=== PATIENT | male | born 1930 | race Caucasian/White ===

== ENCOUNTER 2016-11-19 11:13 | Inpatient (IN) | payer OTHER ==
[~2016-11-19] VITALS: Ht 170.2 cm; Wt 50.9 kg
[2016-11-19 13:18] VITALS: BP 149/77
[2016-11-19] MEDS: MORPHINE SULFATE 20 MG/ML CONC SOLUTION. SL PRN ×9 (13:24→21:53)
[2016-11-19] MEDS: HALOPERIDOL 10 MG/5 ML ORAL.CONC. PEG PRN ×4 (13:24→21:04)
[2016-11-19 13:35] VITALS: BP 149/77
--- NOTE | 2016-11-19 13:42 | NUR ---
Patient to room 103 for inpatient hospice. Diagnosis end stage COPD. Patient on 5L NC, oxygen saturation 81%. Patient refuses to keep gown on, anxious and agitated at times. Takes oxygen off at times. at bedside. Will monitor.
--- NOTE | 2016-11-19 15:03 | PDOC1 ---
HISTORY & PHYSICAL DATE OF ADMISSION: 11/19/2016 HPI: HPI: Assessment hospice history and physical on Santi Cheek. He was transferred to [facility] for hospice care from his home. He has end-stage COPD and is in hypoxic respiratory failure PROBLEMS: #1 end-stage COPD #2 hypoxic respiratory failure #3 tobacco use disorder, has now quit 4. End-of-life care PAST MEDICAL HISTORY: PMH: COPD PSH: NONE SH: FOR 57 YEARS,, NEVER WENT TO THE DOCTOR UNTIL LAST YEAR WHEN HE DEVELOPED COPD. SMOKEDFOR 60 YEARS. QUIT LAST FALL, NO ALCOHOL. PFMH: UNKNOWN ALLERGIES: Allergies Coded Allergies Type Severity Reaction Last Updated Verified No Known Drug Allergies 11/19/16 No MEDS: MEDICATIONS: Current Medications Medications (Trade) Dose Ordered Sig/Lorene Start Time Stop Time Status Last Admin Dose Admin Haloperidol Lactate (Haldol Oral) 2 mg PRN Q2HR PRN 11/19/16 13:00 11/19/16 13:24 2 MG Morphine Sulfate (Roxanol Conc) 10 mg PRN Q30MIN PRN 11/19/16 13:00 11/19/16 14:12 10 MG VITALS: Vital Signs Date Time Temp Pulse Resp B/P (MAP) Pulse Ox O2 Delivery O2 Flow Rate FiO2 11/19/16 14:12 81 11/19/16 13:35 97.9 122 149/77 (101) Nasal Cannula 5.0 11/19/16 13:18 24 ROS: RESTLESS, HOT AND UNCOMFORTABLE. PHYSICAL EXAM: 86 YEAR old male in moderate distress. He is very restless and is picking at his bedclothes and trying to take him off. He is not making eye contact. His eyes are clear however,and throat extremely dry tongue. Lungs with some scattered diffuse wheezes cardiovascular regular rhythm and rate is tachycardic abdomen was soft nontender extremities without edema collarless rashmi skin is warm and dry. SAturation at the time of exam is 81% on 5 L VTE PROPHYLAXIS: VTE Prophylaxis Devices: Contrainidicated ASSESSMENT/PLAN ASSESSMENT: 1 end-stage COPD #2 hypoxic respiratory failure PLAN: Hospice care. Comfort measures. Roxanol and Haldol as needed. Oxygen as needed. We have placed a FAN in the room. And we'll continue to monitor JANELL TRAORE DO Nov 19, 2016 15:03
[2016-11-19] MEDS ORDERED: MORPHINE SULFATE 10 MG/ML SYRINGE. IV PRN (22:00)
[2016-11-19] MEDS: MORPHINE SULFATE 10 MG/ML SYRINGE. IM PRN (23:09)
--- NOTE | 2016-11-20 00:08 | ACF ---
Admission Criteria Forms COPD Clinical Indications for Admission to Inpatient Care (Place 'X' for any and all applicable criteria): Admission is indicated for ANY ONE of the following (1)(2)(3): [X]I. Acute exacerbation by high-risk comorbidity (e.g., pneumonia, dysrhythmia, heart failure, pleural effusion, pneumothorax) or severe underlying COPD (e.g., steroid dependent) [ ]II. Inpatient admission required rather than observation care (see Chronic Obstructive Pulmonary Disease: Observation Care) because of ANY ONE of the following: [ ]a) New or pre-existing signs or symptoms of COPD (eg, dyspnea or Tachypnea at rest or with minimal activity) that persist despite outpatient and observation care treatment [ ]b) New-onset hypoxemia (room air SaO2 less than 90%, PO2 less than 60 mm Hg (8.0 kPa)) that persists despite outpatient and observation care treatment [ ]c) Worsening of pre-existing hypoxemia (eg, new or increased requirement for supplemental oxygen to maintain oxygenation at baseline level) that persists despite outpatient and observation care treatment, with oxygen treatment needs performable only in acute inpatient setting [ ]d) Hypercarbia (PCO2 greater than 40 mm Hg (5.3 kPa))-induced respiratory acidosis (pH less than 7.35) that persists despite outpatient and observation care treatment [ ]e) Supplemental oxygen or respiratory treatments for over 24 hours that are performable only in acute inpatient setting [ ]f) Chest tube placement with active evacuation (e.g., suction, drainage) (5) [ ]g) Other condition, treatment or monitoring requiring inpatient admission [ ]III. Planned invasive surgical or diagnostic procedures requiring acute- care hospitalization [ ]IV. Acute respiratory failure (e.g., uncompensated hypercarbia, severe hypoxemia) [ ]V. Severe comorbid condition (e.g., severe steroid myopathy, acute vertebral fracture) that has acutely worsened pulmonary function [ ]. Confusion state, lethargy, obtundation, stupor or coma Extended stay beyond goal length of stay may be needed for (31)(32): [ ]a ) Respiratory Failure. [ ]b) Severe or persisting hypoxemia or hypercarbia [ ]c) Severe or persistent dyspnea [ ]d) Comorbidities (e.g. chronic heart failure, atrial fibrillation with rapid response, pneumonia) [ ]e) Malnutrition The original [facility] content created by [facility] has been revised. The portions of the content which have been revised are identified through the use of italic text or in bold, and [facility] has neither reviewed nor approved the modified material. All other unmodified content is copyright [facility]. Please see references footnoted in the original [facility] edition 2016 Admission Criteria Met?: Yes JESUSITA MISHRA Nov 20, 2016 00:07
[2016-11-20] MEDS: MORPHINE SULFATE 10 MG/ML SYRINGE. IM PRN (02:26)
[2016-11-20] MEDS ORDERED: HALOPERIDOL LACT 5 MG/ML VIAL. IM PRN (07:30)
[2016-11-20] MEDS: MORPHINE SULFATE 20 MG/ML CONC SOLUTION. SL PRN ×2 (07:32→09:32)
[2016-11-20] MEDS: HALOPERIDOL 10 MG/5 ML ORAL.CONC. PEG PRN ×2 (07:32→09:32)
--- NOTE | 2016-11-20 10:19 | PDOC ---
PROGRESS NOTES Assessment 1 end-stage COPD #2 hypoxic respiratory failure #3 tobacco use disorder, has now quit 4. End-of-life care PLAN Continue end of life care. Subjective spent 10 minutes in room visiting with and talking about her and his life. He is comfortable and doing well on the SQ morphine. He spit out the Roxanol last night and had to go to SQ medication. He is now comfortable and resting. Objective Vital Signs Date Time Temp Pulse Resp B/P (MAP) Pulse Ox O2 Delivery O2 Flow Rate FiO2 11/20/16 09:32 82 Nasal Cannula 4.0 11/20/16 05:05 97.4 104 22 11/19/16 13:35 149/77 (101) Intake and Output 11/20/16 07:00 Intake Total 0 ml Output Total 100 ml Balance -100 ml Intake Oral 0 ml Output Urine Total 100 ml # Voids 2 Physical Exam Sedated. Resting comfortable. Tongue is dry. Lungs with congested sounds but no excess secetions. CV RRR, tachycardic Review of Relevant I have reviewed the following items chivo (where applicable) has been applied. Medications Current Medications Morphine Sulfate (Roxanol Conc) 10 mg PRN Q30MIN PRN SL PAIN Last administered on 11/20/16 09:32; Start 11/19/16 at 13:00 Haloperidol Lactate (Haldol Oral) 2 mg PRN Q2HR PRN PEG AGITATION Last administered on 11/20/16 09:32; Start 11/19/16 at 13:00 Morphine Sulfate (Morphine 10mg Syringe) 10 mg PRN Q2HR PRN IV PAIN; Start 04/26 at 22:00; Stop 11/19/16 at 23:01; Status DC Morphine Sulfate (Morphine 10mg Syringe) 10 mg PRN Q2HR PRN IM PAIN Last administered on 11/20/16 02:26; Start 11/19/16 at 23:01 Haloperidol Lactate (Haldol) 5 mg PRN Q3HRS PRN IM agitation; Start 11/20/16 at 07:30 Active Scripts Active Reported No Known Medications Prior To Admisstion (Info) Each 1 Each Vitals/I & O Vital Sign - Last 24 Hours 11/19/16 11/19/16 11/19/16 11/19/16 13:18 13:35 14:12 17:00 Temp 97.9 97.9 Pulse 122 122 Resp 24 B/P (MAP) 149/77 (101) 149/77 (101) Pulse Ox 81 81 81 81 O2 Delivery Nasal Cannula Nasal Cannula O2 Flow Rate 5.0 5.0 11/19/16 11/19/16 11/19/16 11/19/16 17:45 18:19 19:05 19:05 Pulse Ox 81 81 O2 Delivery Refused Nasal Cannula O2 Flow Rate 4.0 11/19/16 11/19/16 11/19/16 11/19/16 19:10 21:53 22:55 23:09 Resp 22 O2 Delivery Room Air Nasal Cannula Nasal Cannula O2 Flow Rate 4.0 5.0 11/20/16 11/20/16 11/20/16 11/20/16 02:20 02:26 03:05 05:05 Temp 97.4 Pulse 107 104 Resp 24 22 Pulse Ox 83 83 82 O2 Delivery Nasal Cannula Nasal Cannula Nasal Cannula Nasal Cannula O2 Flow Rate 5.0 5.0 5.0 5.0 11/20/16 11/20/16 11/20/16 11/20/16 07:32 07:54 08:34 09:32 Pulse Ox 82 82 82 O2 Delivery Nasal Cannula Nasal Cannula Nasal Cannula Nasal Cannula O2 Flow Rate 4.0 4.0 4.0 4.0 Intake and Output 11/19/16 11/19/16 11/20/16 15:00 23:00 07:00 Intake Total 0 ml Output Total 100 ml Balance -100 ml 0 ml JANELL TRAORE DO Nov 20, 2016 10:19
--- NOTE | 2016-11-20 11:09 | PDOC3 ---
Discharge Summary Visit Information Date of Admission: Nov 19, 2016 Date of Discharge: Nov 20, 2016 Final Diagnosis 1. End Stage COPD 2. Hypoxic respiratory failure 3. End of life care Problems: Brief Hospital Course Allergies Allergies Coded Allergies Type Severity Reaction Last Updated Verified No Known Drug Allergies 11/19/16 No Vital Signs Vital Signs Date Time Temp Pulse Resp B/P (MAP) Pulse Ox O2 Delivery O2 Flow Rate FiO2 11/20/16 09:32 82 Nasal Cannula 4.0 11/20/16 05:05 97.4 104 22 11/19/16 13:35 149/77 (101) Brief Hospital Course Mr. Cheek is a 86 old male who was admitted to [facility] yesterday for end-stage COPD and hypoxic respiratory failure. His was present during his stay. He was treated with morphine and Haldol. He was comfortable and resting quietly at the time of . I had just spent 10 minutes with his visiting and he about 20 minutes later. Time of 10:52 am. Discharge Information Condition at Discharge: / Disposition/Orders: Dischare Medications Current Medications Morphine Sulfate (Roxanol Conc) 10 mg PRN Q30MIN PRN SL PAIN Last administered on 11/20/16 09:32; Start 11/19/16 at 13:00 Haloperidol Lactate (Haldol Oral) 2 mg PRN Q2HR PRN PEG AGITATION Last administered on 11/20/16 09:32; Start 11/19/16 at 13:00 Morphine Sulfate (Morphine 10mg Syringe) 10 mg PRN Q2HR PRN IV PAIN; Start 04/26 at 22:00; Stop 11/19/16 at 23:01; Status DC Morphine Sulfate (Morphine 10mg Syringe) 10 mg PRN Q2HR PRN IM PAIN Last administered on 11/20/16 02:26; Start 11/19/16 at 23:01 Haloperidol Lactate (Haldol) 5 mg PRN Q3HRS PRN IM agitation; Start 11/20/16 at 07:30 Active Scripts Active Reported No Known Medications Prior To Admisstion (Info) Each 1 Each JANELL XIE DO Nov 20, 2016 11:09
--- NOTE | 2016-11-20 11:15 | NUR ---
at patient's bedside. Aide entered room to provide cares to patient at 1047, did not notice visible chest rise. Nurse to bedside, ausculated for heart beat, none heard, no visible chest rise. Dual nurse verification/auscultation performed at bedside, time of declared 1052. See form for RN signatures. Dr. Woods notified of at 1053. [facility] notified. [facility] notified at 1107. Refer to form for reference number. remains at bedside, will be taking belongings with her.
--- NOTE | 2016-11-20 11:45 | NUR ---
Permission received from family to call services. Services notified to picker packer body at approximately 1140. Informed that it may be 2 hours before they arrive. remains at bedside.
--- NOTE | 2016-11-20 13:32 | NUR ---
Body released to Services. Family vacated room, belongings taken.
== END 2016-11-20 13:34 | disposition expired | DRG 189 ==
LOC: 1 SOUTH 12:30
PROVIDERS: ADMIT Family Medicine; ATTEND Family Medicine
DX: J96.91 Respiratory failure, unspecified with hypoxia (principal); J44.9 Chronic obstructive pulmonary disease, unspecified; Z51.5 Encounter for palliative care; Z87.891 Personal history of nicotine dependence
CPT/HCPCS: J2270; Q5005